=== PATIENT | male | born 1945 | race Caucasian/White ===

== ENCOUNTER → 2016-11-08 | Outpatient (CLI) | payer MEDICARE, BC ==
[2015-04-06 11:50] VITALS: BP 154/69
[~2016-11-08] MED LIST: ALLO300T PO; AMLO10TA2 PO; AMLO2.5T PO; APIX2.5T PO; APIX5TAB PO; ASPI325T4 PO; BUPIVACAINE MPF 0.25% 10 ML VIAL. ONE; CALC-67 PO; CHOL20002 PO; CLON0.1T PO; CRESTOR5 MG PO; CYAN10005 PO; DEPO-PROVERA IM; DOCU100C5 PO; ESZO3TAB9 PO; FENT1PAT15 TD; FLUT9.9S NS; GABA-586 PO; LISI-334 PO; LUPRON DEPOT IM; MORP15TA PO; OMEP40CA5 PO; OXYC-323 PO; OXYC15TA PO; OXYC1TAB9 PO; PARO20TA3 PO; PITA4TAB2 PO; RABE20TA5 PO; RIVA10TA PO; SOTA80TA PO; TRAM50TA PO; ZOLP10TA4 PO; [UNRECOGNIZED DRUG - CODE] PO; methylPREDNISolone ACETATE 40 MG/ML VIAL. ONE
--- NOTE | 2016-11-09 00:17 | PAIN ---
DATE OF SERVICE: 11/08/2016 DIAGNOSES: 1. Bilateral occipital neuralgia. 2. Post-cervical laminectomy syndrome. 3. Post-lumbar laminectomy syndrome. HISTORY OF PRESENT ILLNESS: The patient is a 71-year-old male who returns for followup status post bilateral greater and lesser occipital nerve blocks about a month ago as stated, patient reports he does very well with these, about 80% improvement for several weeks after the injections, but has increasing pain now in the back of the head, top of the head bilaterally. Also, some pain in the base of the neck and shoulders as well as the upper back, more on the right than the left with some tightness. The patient has had cervical laminectomy in the past and has done well physical therapy. We discussed this and we will order this once again. The patient reports his pain is now 8-9 on a scale of 10, mainly in the base of the neck and lateral neck, but also ____ posterior aspect of the neck and back of the head in the occipital region and anteriorly and frontal towards the parietal and frontal regions of the head, essentially equal right and left. The patient also reports he has had some history of anemia and is scheduled to have EGD and a colonoscopy within the next month as well. The patient reports no new motor or sensory deficits, no new bowel or bladder incontinence or other complaints. PHYSICAL EXAMINATION: VITAL SIGNS: The patient's blood pressure 142/74, pulse 59, respirations 16, temperature 99.2 degrees Fahrenheit, height is 6 feet, weight is 262 pounds. GENERAL: The patient is awake, alert, oriented, appropriate, very pleasant demeanor. HEENT: Head shows normocephalic, atraumatic. Extraocular movements are intact, symmetrical. Oral cavity, mucous membranes are moist and pink. Pupils are equal, round, reactive to light and accommodation. Oral cavity shows mucous membranes moist and pink. Dentition is intact. NECK: Shows anterior throat supple. Swallow reflex is symmetrical. CHEST: Shows normal on inspection. Breath sounds clear to auscultation bilaterally. HEART: Shows S1 and S2 clear. ABDOMEN: Soft, nontender, nondistended. No palpable organomegaly. There is no rebound or guarding demonstrated. BACK: Shows spine grossly in the midline posteriorly with some moderate tenderness with palpation in the inferior and middle aspect of the cervical paraspinous musculature, also in the lateral aspect of the strap muscles bilaterally, very firm, very tender musculature in this region as well as the trapezius, mainly medially but also inferiorly in the rhomboid distribution, more on the right than the left, with very firm musculature here as well, diffusely tender throughout. Palpation over the occipital region shows no obvious abnormalities. No deformations or significant muscular hypertrophy or atrophy. PLAN: Options were discussed with the patient at this time. Patient's old chart was reviewed. as his current medication regimen and updated. Current review of systems updated today as well. We will proceed with bilateral greater and lesser occipital nerve blocks. Risks were again discussed including, but not limited to bleeding, infection, possibility of intravascular injection sequelae, spread of local anesthetic and numbness, side effects of steroid medication and poor results regarding pain control. The patient understands and wishes to proceed. The patient will return to the clinic in approximately 4 weeks for followup. Also order physical therapy. The patient was given physical therapy orders to take to local physical therapy facility he has been to before near his home in [place], [place]. Also, encouraged him to maintain follow up with his EGD and colonoscopy scheduled next month as well. The patient was counseled on activity level as well as side effects to be aware of with the medications and the shots and will follow up as scheduled. DIAGNOSIS: Bilateral occipital neuralgia. PROCEDURES: Bilateral greater and lesser occipital nerve blocks using local anesthetic under sterile prep and drape. MEDICATIONS INJECTED: Total of 80 mg Depo-Medrol and total of 10 mL of 0.25% bupivacaine, ____ each of these on each side as documented. CONDITION AT DISCHARGE: Stable. The patient tolerated procedure well, had no complications. CHIQUI ANNE MD DR: SENA/karan JOB#: [id number] / [id number]
== END | disposition home or self-care (01) ==
LOC: PNCL 10:12
PROVIDERS: ATTEND Anesthesiology
DX: M54.81 Occipital neuralgia (principal); M96.1 Postlaminectomy syndrome, not elsewhere classified; K21.9 Gastro-esophageal reflux disease without esophagitis; I25.10 Atherosclerotic heart disease of native coronary artery without angina pectoris; I10 Essential (primary) hypertension; Z90.49 Acquired absence of other specified parts of digestive tract; F32.9 Major depressive disorder, single episode, unspecified; Z72.89 Other problems related to lifestyle; Z96.642 Presence of left artificial hip joint; Z87.891 Personal history of nicotine dependence
CPT/HCPCS: 64405; J1030; J3490

== ENCOUNTER → 2016-12-20 | Outpatient (CLI) | payer MEDICARE, BC ==
[2015-04-06 11:50] VITALS: BP 154/69
[~2016-12-20] MED LIST changes: -BUPIVACAINE MPF 0.25% 10 ML VIAL. ONE; +BUPIVACAINE MPF 0.5% 30 ML VIAL. ONE; -methylPREDNISolone ACETATE 40 MG/ML VIAL. ONE; +methylPREDNISolone ACETATE 80 MG/ML VIAL. ONE
--- NOTE | 2016-12-21 04:22 | PAIN ---
DATE OF SERVICE: 12/20/2016 PROGRESS NOTE DIAGNOSES: 1. Occipital neuralgia bilaterally. 2. Post-cervical and lumbar laminectomy syndromes. HISTORY OF PRESENT ILLNESS: The patient is a 71-year-old male, who returns for followup status post bilateral greater and lesser occipital nerve blocks, most recently seen 11/08/2016. The patient did well with these ____ for a short period of time. After about 2-3 weeks, the pain returns and was significant headaches in the posterior aspect of the occipital and parietal areas of the head with more pain on the right than the left. The patient is having some significant neck pain and stiffness as well. We sent him for physical therapy after his last visit here. However, he reports that physical therapy was not hands on, he was doing some exercises with the shoulders mainly and was disappointed with the care that he got with his physical therapist, which was local area. He lives near [place], [place]. There is an area in ____, which he would like to try is good luck with them in the past with some work on his back from physical therapy. We will make arrangements in the worst to try this facility as he has better components with them. The patient reports otherwise pain is sharp and constant aching and dull alternating rates as 6-7 on a scale of 10, it can be as high as 10 on 10 mostly in the right side causing right-sided headaches, worse with pain in the neck as well and the occipital regions. The patient reports no new motor or sensory deficits, no new complaints. PHYSICAL EXAMINATION: VITAL SIGNS: The patient's blood pressure 160/82, pulse 59, respirations 18, temperature is 98.8 degrees Fahrenheit, height 6 feet, weight is 259 pounds. GENERAL: The patient is awake, alert, oriented, appropriate, very pleasant demeanor. HEENT: Head shows normocephalic, atraumatic. Extraocular movements are intact and symmetrical. Oral cavity, mucous membranes are moist and pink. Dentition is intact. NECK: Shows anterior throat supple without palpable lymphadenopathy noted. Swallow reflex is symmetrical. CHEST: Shows normal on inspection. Breath sounds clear to auscultation bilaterally. HEART: Shows S1 and S2 clear. No murmurs auscultated. ABDOMEN: Obese, soft, nontender, nondistended. No palpable organomegaly, no rebound or guarding demonstrated. BACK: Shows spine grossly midline. Neck shows, normal-appearing cervical lordotic curvature. There is some moderate tenderness with palpation in the right side of the paraspinous musculature in the sternocleidomastoid on the right side, which is very firm and tender with palpation, but with limited rotation to the left side past about 15 degrees with significant pain. Also, extension and flexion was performed fully without significant pain. The patient's occipital region shows normal occipital protuberance, no abnormalities are noted. No asymmetry, no significant abnormalities with palpation over the muscles of the scalp as well. Options were discussed with the patient and the patient's old chart was reviewed as his current medication regimen and updated. Current review of systems updated today as well. We will proceed with bilateral greater and lesser occipital nerve blocks today with Risks were again discussed including, but not limited to bleeding, infection, possibility of intravascular injection sequelae, spread of local anesthetic and numbness, side effects of steroid medication and poor results regarding pain control. The patient understands and wishes to proceed. The patient again will begin physical therapy orders to tried different physical therapy provider that he has had success with in the past with his low back therapies. We will try some cervical traction as well as hands on, myofascial release techniques, stretching and strengthening exercises for the cervical distribution as the patient has done well with these in the past. DIAGNOSIS: Bilateral occipital neuralgia. PROCEDURES: Bilateral greater and lesser occipital nerve block using local anesthetic under sterile prep and drape. Medication injected a total of 80 mg Depo-Medrol plus total of 10 mL of 0.5% bupivacaine with negative aspiration, each injection site. Condition at discharge is stable. The patient tolerated procedure well, had no complications. CHIQUI ANNE MD DR: SENA/karan JOB#: [id number] / [id number]
== END | disposition home or self-care (01) ==
LOC: PNCL 10:43
PROVIDERS: ATTEND Anesthesiology
DX: M54.81 Occipital neuralgia (principal); M96.1 Postlaminectomy syndrome, not elsewhere classified; I10 Essential (primary) hypertension; I48.91 Unspecified atrial fibrillation; K21.9 Gastro-esophageal reflux disease without esophagitis; F41.9 Anxiety disorder, unspecified; F32.9 Major depressive disorder, single episode, unspecified; Z85.46 Personal history of malignant neoplasm of prostate; Z90.49 Acquired absence of other specified parts of digestive tract; Z96.653 Presence of artificial knee joint, bilateral; Z96.643 Presence of artificial hip joint, bilateral; Z72.89 Other problems related to lifestyle; Z87.891 Personal history of nicotine dependence
CPT/HCPCS: 64405; J1040; J3490

== ENCOUNTER → 2017-09-05 | Outpatient (CLI) | payer MEDICARE, BC ==
[2015-04-06 11:50] VITALS: BP 154/69
[~2017-09-05] MED LIST changes: -ASPI325T4 PO; +ASPI325T8 PO; +BUPIVACAINE MPF 0.25% 10 ML VIAL. ONE; -BUPIVACAINE MPF 0.5% 30 ML VIAL. ONE; +CALC-31 PO; -CALC-67 PO; +DOCU100C28 PO; -DOCU100C5 PO; +DULO30CA2 PO; +ESZO3TAB28 PO; -ESZO3TAB9 PO; +IBUP-1027 PO; +LISI40TA PO; +MORP30TA PO; +POLY17PO29 PO; +RABE20TA18 PO; -RABE20TA5 PO; -SOTA80TA PO; +SOTA80TA48 PO
--- NOTE | 2017-09-05 18:46 | PAIN ---
DATE OF SERVICE: 09/05/2017 DIAGNOSES: 1. Occipital neuralgia bilaterally. 2. Post-lumbar laminectomy syndrome. 3. Post-cervical laminectomy syndrome. HISTORY OF PRESENT ILLNESS: The patient is a 71-year-old male who returns for followup status post bilateral greater occipital and lesser occipital nerve blocks on 12/20/2016. The patient did very well with these with about an 80% improvement until about 2 weeks ago the pain began to return, back of the skull causing headaches, also some pain in the neck posteriorly, but it radiates up superiorly into the occiput, into the parietal region and into the frontal region of both eyes and forehead, somewhat worse on the right than the left, but present bilaterally. The patient also reports some right shoulder pain, otherwise is doing fairly well. The pain has been returning again very slowly, very gradually, did very well after the last injections. The patient reports the pain is a 9 on a scale of 10 at its worst, 8 on average, an 8 at least and is an 8 today. The patient reports it is sharp, becoming more constant, aching, dull, throbbing as well. Some of the time it is worse with concentration or activity and sometimes worse at night. The patient reports it sporadically awakens him from sleep, but only over the past 2 weeks. Otherwise, he does fairly well at rest or in a dark room. The patient reports no new motor or sensory deficits, no new changes. PHYSICAL EXAMINATION: VITAL SIGNS: The patient's blood pressure 144/80, pulse 67, respirations 16, temperature 99.1 degrees Fahrenheit. Weight is 273 pounds. GENERAL: The patient is awake, alert, oriented, appropriate, very pleasant demeanor. HEENT: Head shows normocephalic, atraumatic. Extraocular movements are intact and symmetrical. Oral cavity shows mucous membranes moist and pink. Dentition are intact. Pupils equal, round, reactive to light and accommodation. NECK: Shows anterior throat supple without palpable lymphadenopathy noted. Swallow reflex is symmetrical. CHEST: Shows normal on inspection. Breath sounds are clear to auscultation bilaterally. HEART: Shows S1 and S2 clear. No murmurs auscultated. ABDOMEN: Soft, nontender, nondistended. No palpable organomegaly. No rebound or guarding demonstrated. BACK: The patient's back shows neck with slight flattening of the cervical lordotic curvature, normal thoracic kyphotic curvature and some slight flattening of lumbar lordotic curvature. The patient's neck shows full rotational motion of cervical spine both laterally greater than 10 degrees right and left with some tenderness with far right lateral rotation as well as extension, but not with forward flexion. EXTREMITIES: The patient's upper extremities show deep tendon reflexes 2+ in the biceps and triceps tendons. Motor exam is strong with asset protection greeter strength rated at 5/5 as is biceps and triceps flexion and symmetrical bilaterally. Peripheral pulses 2+ radial distribution. Options were discussed with the patient and the patient's old chart was reviewed as his current medication regimen updated. Current review of systems updated today as well. We will proceed with bilateral greater and lesser occipital nerve blocks. Risks were again discussed including, but not limited to bleeding, infection, possibility of intravascular injection sequelae, spread of local anesthetic and numbness, side effects of steroid medications as well as poor results regarding pain control. The patient understands and wishes to proceed. The patient will return to clinic in approximately 2-3 weeks for followup and would like to call for his next appointment. The patient will continue doing some of his physical therapy exercises for his neck and shoulders at home as well and will follow up as scheduled. DIAGNOSIS: Bilateral occipital neuralgia. PROCEDURE: Bilateral greater and lesser occipital nerve blocks using sterile prep and drape and local anesthetic. MEDICATION INJECTED: A total of 80 mg of Depo-Medrol plus total of 10 mL of 0.25% bupivacaine after negative aspiration at each level. CONDITION AT DISCHARGE: Stable. The patient tolerated the procedure well, had no complications. CHIQUI ANNE MD DR: SENA/karan JOB#: [id number] / [id number]
== END | disposition home or self-care (01) ==
LOC: PNCL 09:58
PROVIDERS: ATTEND Anesthesiology
DX: M54.81 Occipital neuralgia (principal); M96.1 Postlaminectomy syndrome, not elsewhere classified; I25.10 Atherosclerotic heart disease of native coronary artery without angina pectoris; I48.91 Unspecified atrial fibrillation; I10 Essential (primary) hypertension; F32.9 Major depressive disorder, single episode, unspecified; K22.70 Barrett's esophagus without dysplasia; K21.9 Gastro-esophageal reflux disease without esophagitis; Z85.46 Personal history of malignant neoplasm of prostate; Z96.653 Presence of artificial knee joint, bilateral; Z96.642 Presence of left artificial hip joint; Z90.49 Acquired absence of other specified parts of digestive tract; Z79.01 Long term (current) use of anticoagulants; Z98.890 Other specified postprocedural states
CPT/HCPCS: 64405; J1040; J3490